=== PATIENT | female | born 1995 | race Caucasian/White ===

== ENCOUNTER 2020-09-08 17:14 | Outpatient (REF) | payer BC, SELFPAY ==
--- NOTE | 2020-09-08 15:45 | PAPFT_PTH ---
PATIENT: Migdalia Galarza LOC: [facility] U#:[id number] AGE/SX: 24/F ROOM: RE09/08/[address]: Evie Sanabria NP : 1995 BED: DIS: 09/08/2020 SPEC #: [id number] RECD: 09/08/20 18:06 STATUS: JARRED CANTU #: [id number] BENITO: 09/08/20 15:[address]: Evie Sanabria NP DEPT: [facility] Cytology RECD BY: Alejandra Majano Tissues: 1 - CX/ENDOCX FOR PAP SMEARS Procedures: PAP THIN PREP/[facility] Screening Comments: [id number] (CHLAMYDIA/GC)
[2020-09-10 07:50] LABS: Chlamydia Result Negative (Negative); GC Result Negative (Negative)
== END 2020-09-08 17:15 | disposition home or self-care (01) ==
LOC: LBN 17:14
PROVIDERS: Visit Provider Nurse Practitioner Women's Health
DX: Z11.3 Encounter for screening for infections with a predominantly sexual mode of transmission (principal); Z12.4 Encounter for screening for malignant neoplasm of cervix
CPT/HCPCS: 87491; 87591; 88142

== ENCOUNTER 2024-05-28 12:10 | Outpatient (REF) | payer OTHER, SELFPAY ==
--- NOTE | 2024-05-28 11:20 | PAPFT_PTH ---
PATIENT: Migdalia Galarza LOC: [facility] U#:[id number] AGE/SX: 28/F ROOM: RE05/28/[address]: Evie Sanabria NP : 1995 BED: DIS: 05/28/2024 SPEC #: [id number] RECD: 05/28/24 13:14 STATUS: JARRED REQ #: [id number] BENITO: 05/28/24 11:[address]: Daniele MCLEAN,Evie DEPT: [facility] Cytology RECD BY: Alejandra Majano ENTERED: 05/28/24 13:15 SP TYPE: PAPFT OTHR DR: Unknown,Unknown Tissues: 1 - CX/ENDOCX FOR PAP SMEARS Procedures: PAP THIN PREP/[facility] Screening HPV DNA PROBE Comments: [id number] (HPV 16 & 18/45) (CHLAMYDIA/GC)
[2024-05-30 12:22] LABS: Chlamydia Result Negative (Negative); GC Result Negative (Negative)
== END 2024-05-28 12:11 | disposition home or self-care (01) ==
LOC: LBN 12:10
PROVIDERS: Visit Provider Nurse Practitioner Women's Health
DX: Z12.4 Encounter for screening for malignant neoplasm of cervix (principal); R87.612 Low grade squamous intraepithelial lesion on cytologic smear of cervix (LGSIL)
CPT/HCPCS: 87491; 87591; 88142; 87624

== ENCOUNTER 2024-07-30 09:11 | Outpatient (CLI) | payer OTHER, SELFPAY ==
[2024-07-30 09:20] LABS: HCT 41.1 % (36.0-46.0); HGB 13.6 g/dL (11.2-15.7); MCH 29.1 pg (27.0-33.0); MCHC 33.1 % (32.0-36.0); MCV 88 fL (80-95); MPV 8.8 fL (8.0-11.0); Platelet Count 229 10^3/uL (130-400); RBC 4.67 10^6/uL (3.93-5.22); RDW 12.1 % (11.7-14.6); RDW-SD 39.1 fL
[2024-07-30 10:06] LABS: Anion Gap 7.8 mmol/L (3-11); BUN 11 mg/dL (7-18); CO2 29.2 mmol/L (21.0-32.0); CREATININE 0.8 mg/dL (0.55-1.02); Calcium 9.5 mg/dL (8.5-10.1); Calculated LDL 97 mg/dL (<100); Chloride 102 mmol/L (98-107); Cholesterol 188 mg/dL (<200); Estimated GFR 104.15 (mL/min/1.73m2); Glucose 109 mg/dL (74-106); HDL Cholesterol 47 mg/dL (40-60); Potassium 3.7 mmol/L (3.5-5.1); Sodium 139 mmol/L (136-145); TSH (W/Ref FT4) 2.07 uIU/mL (0.36-3.74); Triglyceride 221 mg/dL (<150)
== END 2024-07-30 09:12 | disposition home or self-care (01) ==
LOC: LBO 09:12
PROVIDERS: PCP Nurse Practitioner Family; Visit Provider Nurse Practitioner Family
DX: I10 Essential (primary) hypertension (principal)
CPT/HCPCS: 36415; 80048; 80061; 82947; 85027; 84443

== ENCOUNTER 2024-07-30 16:29 | Outpatient (REF) | payer OTHER, SELFPAY ==
[2024-07-30 17:53] LABS: COMMENT (LAB VIEW ONLY) 184.95 mg/dL
== END 2024-07-30 16:30 | disposition home or self-care (01) ==
LOC: NCHCN 16:29
PROVIDERS: PCP Nurse Practitioner Family; Visit Provider Nurse Practitioner Family
DX: I10 Essential (primary) hypertension (principal)
CPT/HCPCS: 82043; 82570